=== PATIENT | male | born 1970 | race Caucasian/White ===

== ENCOUNTER 2022-11-06 09:13 | Outpatient (CLI) | payer OTHER, SELFPAY ==
[2022-11-06 13:23] LABS: Albumin* 4.8 g/dL (3.3-5.0)
[2022-11-06 13:24] LABS: Chloride* 101 mmol/L (96-114); Potassium* 4.7 mmol/L (3.6-5.1); Sodium* 138 mmol/L (135-149)
[2022-11-06 13:26] LABS: Aspartate Amino Transferase* 32 U/L (12-35); Bilirubin Total* 1.5 mg/dL (0.1-1.5); Blood Urea Nitrogen* 14 mg/dL (7-30); Carbon Dioxide* 30 mmol/L (20-32); Cholesterol* 199 mg/dL (90-199); Creatinine* 0.9 mg/dL (0.5-1.5); Estimated Glomerular Filt Rate 103 ml/min; Total Protein* 7.7 g/dL (6.0-8.3)
[2022-11-06 13:27] LABS: Alanine Aminotransferase* 41 U/L (4-50); Alkaline Phosphatase* 53 U/L (40-150); Calcium* 9.6 mg/dL (8.4-10.6); Glucose* 98 mg/dL (60-115); Triglycerides* 122 mg/dL (40-149)
[2022-11-06 13:28] LABS: HDL Cholesterol* 48 mg/dL (>=40); LDL Cholesterol Calculated 127 mg/dL (<100)
[2022-11-06 13:44] LABS: Vitamin D 25 Hydroxy* 31 ng/mL (30-80)
[2022-11-06 13:58] LABS: PSA Screen* 0.82 ng/mL (0.10-4.00)
[2022-11-08 19:08] LABS: Sex Hormone Binding Globulin 32 nmol/L (19-76); Testosterone, Adult Male 463 ng/dL (300-890); Testosterone, Free Calculation 88 pg/mL (47-244); Testosterone, Percentage Free 1.9 % (1.6-2.9)
== END 2022-11-06 09:14 | disposition home or self-care (01) ==
LOC: LKVREF 09:14
PROVIDERS: Visit Provider Family Medicine
DX: Z00.00 Encounter for general adult medical examination without abnormal findings (principal); E78.00 Pure hypercholesterolemia, unspecified; I10 Essential (primary) hypertension; M25.50 Pain in unspecified joint; R07.89 Other chest pain; F41.9 Anxiety disorder, unspecified; Z12.5 Encounter for screening for malignant neoplasm of prostate; Z13.21 Encounter for screening for nutritional disorder
CPT/HCPCS: 80053; 80061; 82306; 84153; 84270; 84402; 84403

== ENCOUNTER 2022-11-24 13:42 | Outpatient (CLI) | payer OTHER, SELFPAY ==
[2022-11-24 15:00] VITALS: BP 141/90; PULSE 99
--- NOTE | 2022-11-24 21:06 | P.STN_ITS ---
Stress Test Note Date Date of test: 11/24/22 Providers Primary care provider: Darrell Kendrick Stress test physician: Justyn Segovia Stress Test Note Stress test ordered: Stress Echo Indication for test: Atypical chest pain Results discussion: This pleasant gentleman presents for stress echo, informed consent is obtained after risks benefits side effects are discussed, cardiac stress test medical history form is reviewed. Pretest EKG shows normal sinus rhythm with a ventricular rate of 72 and a blood pressure 137/83. No acute ST wave changes are noted. Patient has excellent exercise tolerance is exercised for a total time of 12 minutes 2nd, achieved a metabolic COVID 12.3 Mets, test is terminated because of fulfillment of protocol, he had no chest pain or shortness of breath, were no dysrhythmias, or any other anginal equivalents. Review of the tracings afterwards showed no ST wave changes suggestive of ischemia. Impression: Negative electrographic portion of stress echo Follow up suggested: Await echo images, they will be read by Cardiology, clinical correlation with these will be needed, patient returned to baseline, and is discharged. Follow- up will be per primary care
== END 2022-11-24 13:43 | disposition home or self-care (01) ==
LOC: STRESS 13:43
PROVIDERS: PCP Family Medicine; Visit Provider Family Medicine
DX: R07.9 Chest pain, unspecified (principal)
CPT/HCPCS: 93016; 93325; 93351

== ENCOUNTER 2023-12-27 10:00 | Outpatient (CLI) | payer OTHER, SELFPAY | END 2023-12-27 10:01 | disposition home or self-care (01) | PROVIDERS: PCP Family Medicine; Visit Provider Family Medicine | DX: Z00.00 Encounter for general adult medical examination without abnormal findings (principal); E78.00 Pure hypercholesterolemia, unspecified; I10 Essential (primary) hypertension; F41.9 Anxiety disorder, unspecified; Z12.5 Encounter for screening for malignant neoplasm of prostate; Z11.59 Encounter for screening for other viral diseases | CPT/HCPCS: 80053; 80061; 82306; 84270; 84402; 84403; G0103 ==

== ENCOUNTER 2024-08-15 08:00 | Outpatient (CLI) | payer OTHER, SELFPAY | END 2024-08-15 08:01 | disposition home or self-care (01) | LOC: NFLDREF 08-16 10:29 | PROVIDERS: PCP Family Medicine; Referring Provider Family Medicine; Visit Provider Family Medicine | DX: E78.00 Pure hypercholesterolemia, unspecified (principal); I10 Essential (primary) hypertension; R79.89 Other specified abnormal findings of blood chemistry; R53.83 Other fatigue | CPT/HCPCS: 80053; 84270; 84402; 84403 ==

== ENCOUNTER 2025-01-04 08:09 | Outpatient (CLI) | payer OTHER, SELFPAY | END 2025-01-04 08:10 | disposition home or self-care (01) | LOC: NFLDREF 01-05 07:41 | PROVIDERS: PCP Family Medicine; Referring Provider Family Medicine; Visit Provider Family Medicine | DX: E78.00 Pure hypercholesterolemia, unspecified (principal); I10 Essential (primary) hypertension; R53.83 Other fatigue; R17 Unspecified jaundice; R79.89 Other specified abnormal findings of blood chemistry; E66.9 Obesity, unspecified; Z12.5 Encounter for screening for malignant neoplasm of prostate | CPT/HCPCS: 80053; 80061; 82248; 84270; 84402; 84403; G0103 ==

== ENCOUNTER 2025-04-10 08:20 | Outpatient (CLI) | payer OTHER, SELFPAY | END 2025-04-10 08:21 | disposition home or self-care (01) | LOC: NFLDREF 04-11 03:58 | PROVIDERS: PCP Family Medicine; Referring Provider Family Medicine; Visit Provider Family Medicine | DX: R79.89 Other specified abnormal findings of blood chemistry (principal); E66.9 Obesity, unspecified; R53.83 Other fatigue | CPT/HCPCS: 80076; 84270; 84402; 84403 ==